=== PATIENT | male | born 1985 | race Caucasian/White ===

== ENCOUNTER 2018-03-31 11:06 | Emergency (ER) | payer OTHER ==
[2018-03-31 11:11] VITALS: BP 126/86
[2018-03-31] MEDS ORDERED: chlordiazePOXIDE 25 MG CAP PO ONE (11:17)
[2018-03-31] MEDS ORDERED: CHLORDIAZEPOXIDE 25MG PREPK#6 BTL TAKEHOME ONE (11:20)
--- NOTE | 2018-03-31 11:21 | EDPHY ---
H & P Time Seen by Provider: 03/31/18 11:12 HPI/ROS: CHIEF COMPLAINT: "I think I had an alcohol withdrawal seizure" HISTORY OF PRESENT ILLNESS: 32-year-old male arrives via private vehicle with mother complaining of as will seizure which he believes to be related to acute alcohol withdrawal. States that he has been on alcohol binge. He denies suicidal or homicidal ideation. Denies complaints of pain or discomfort. Denies hallucination. Denies oral trauma. Denies incontinence. [ REVIEW OF SYSTEMS: 10 systems reviewed and negative with the exception of the elements mentioned in the history of present illness PAST MEDICAL & SURGICAL HISTORY: History of polysubstance abuse SOCIAL HISTORY: Last drink of alcohol earlier today . PHYSICAL EXAM (Prior to examination, patient consented to physical exam, hands were washed and my usual and customary physical exam procedures followed) 1) GENERAL: Well-developed, well-nourished, alert and oriented. Tearful, answering questions appropriately. 2) HEAD: Normocephalic, atraumatic 3) HEENT: Pupils equal, round, reactive to light bilaterally. Sclera anicteric. 4) NECK: Full range of motion, no meningeal signs. 5) LUNGS: Clear auscultation bilaterally, no wheezes, no rhonchi, no retractions. 6) HEART: Regular rate and rhythm, no murmur, no heave, no gallop. 7) ABDOMEN: No guarding, no rebound, no focal tenderness, negative McBurney's, negative Luna's, negative Rovsing's, negative peritoneal sign, 8) MUSCULOSKELETAL: Moving all extremities, no focal areas of tenderness, no obvious trauma. No peripheral edema or discoloration. 9) BACK: No CVA tenderness, no midline vertebral tenderness, no fluctuance, no step-off, no obvious trauma, no visual or palpable abnormality. 10) SKIN: No rash, no petechiae. 11) Psychiatric: Patient is oriented X 3, tearful, answering questions appropriately 12) NEURO: Tremulous. Awake, alert, and oriented to person, place and time. Answers questions appropriately. There were no obvious focal neurologic abnormalities. No cerebellar dysfunction. Cranial nerves 2 through to 12 intact. Normal steady gait. Upper and lower extremities bilaterally with strength 5 / 5, reflexes 2+. DIFFERENTIAL DIAGNOSIS: In no particular include but limited to acute alcohol withdrawal, alcohol withdrawal seizure, alcoholic hallucinosis Smoking Status: Never smoked Constitutional: Initial Vital Signs Temperature (C) 36.8 C 03/31/18 11:09 Heart Rate 92 03/31/18 11:09 Respiratory Rate 18 03/31/18 11:09 Blood Pressure 126/86 H 03/31/18 11:09 O2 Sat (%) 94 03/31/18 11:09 O2 Delivery Mode Room Air Allergies/Adverse Reactions: No Known Allergies Allergy (Verified 03/31/18 11:08) Home Medications: Medication Instructions Recorded Zoloft 25mg (*) 12/17/17 Xanax 03/31/18 traZODone 03/31/18 MDM/Departure - MDM ED Course/Re-evaluation: 11:22 a.m.: The patient does not endorse suicidal or homicidal ideations. He would like to stay sober would [facility] to [facility]. His mother is here and can drive him there. He has been given a dose of Librium in the ER and prepack of Librium to take the [facility]. Doubt delirium tremens. He feels comfortable with this plan. I do not think that diagnostic studies are indicated at this time. He is able tolerate oral intake. Care of patient under supervision of secondary supervising physician Dr Isai Marie with whom I discussed case. - Depart Disposition: Home, Routine, Self-Care Clinical Impression: Alcohol withdrawal Qualifiers: Complication of substance-induced condition: uncomplicated Qualified Code(s): F10.230 - Alcohol dependence with withdrawal, uncomplicated Condition: Good Instructions: Chlordiazepoxide (By mouth), Alcohol Withdrawal (ED) Additional Instructions: Please consider long-term sobriety and go to the [facility] Referrals: [facility] [Outside] - 03/31/18 11:21 am
== END 2018-03-31 11:34 | disposition home or self-care (01) ==
DX: F10.230 Alcohol dependence with withdrawal, uncomplicated (principal)